=== PATIENT | female | born 1975 | race Two or more races ===

== ENCOUNTER 2020-11-27 18:03 | Emergency (ER) | payer OTHER ==
[~2020-11-27] VITALS: Ht 152.4 cm; Wt 74.6 kg
[~2020-11-27 18:03] MED LIST: LORA10TA3 PO; PREN1TAB58 PO
--- NOTE | 2020-11-27 20:06 | ED.ADGEN ---
Past Medical History Past Medical History: Depression Additional Past Medical Histor: sinus problems, allergies Past Surgical History: Other Additional Past Surgical Histo: "TUMMY TUCK" 11/10/2020 Smoking Status: Never Smoker Alcohol Use: None Drug Use: None General Adult EDM: Chief Complaint: OTHER COMPLAINTS HPI: HPI: Patient is a 45 year old female who presents emergency department with request for her RAHAT drains to be removed from her abdomen. Patient reports she went to [facility] and had a tummy tuck on November 10, 2020. She states that her surgeon told her that once the drains had less than 25 mL of fluid in them after a 24-hour. They can be taken out. Patient reports that she called her primary care doctor who refused to remove the drains and told her to go to the ER to have the drains removed. Patient denies any abdominal pain, fever, cough, nausea, vomiting, diarrhea, shortness of breath, chest pain, weakness, or fatigue. She currently denies any pain. Patient denies any erythema or drainage from her recent surgical incisions. Review of Systems: Review of Systems: Complete ROS is negative unless otherwise noted in HPI. Allergies: Allergies: Allergies Coded Allergies Type Severity Reaction Last Updated Verified No Known Drug Allergies 07/12/14 No Physical Exam: PE: See Above Constitutional: Well developed, well nourished, no acute distress, non-toxic appearance. [] HENT: Normocephalic, atraumatic, bilateral external ears normal, nose normal. [] Eyes: PERRLA, EOMI, conjunctiva normal, no discharge. [] Neck: Normal range of motion, no stridor. [] Cardiovascular:Heart rate regular rhythm Lungs & Thorax: Respirations even and unlabored, no retractions, no respiratory distress Abdomen: soft, non-tender, no palpable mass, no pulsatile mass Skin: Warm, dry, no rash; healing incision just below the patient's abdomen from hop to hip: no warmth, no surrounding erythema, no abnormal drainage or bleeding, there are 2 RAHAT drains present 1 in each groin that have < 25 ml of serous fluid in them.. [] Extremities: No cyanosis, ROM intact, no edema. [] Neurologic: Alert and oriented X 3, no focal deficits noted. [] Psychologic: Affect normal, judgement normal, mood normal. [] Current Patient Data: Vital Signs: Vital Signs Date Time Temp Pulse Resp B/P (MAP) Pulse Ox O2 Delivery O2 Flow Rate FiO2 11/27/20 19:00 97.7 85 16 112/74 (87) 98 Room Air 97.7 EKG: EKG: [] Heart Score: C/O Chest Pain: No Risk Scores: Score 0 - 3: 2.5% MACE over next 6 weeks - Discharge Home Score 4 - 6: 20.3% MACE over next 6 weeks - Admit for Clinical Observation Score 7 - 10: 72.7% MACE over next 6 weeks - Early Invasive Strategies Radiology/Procedures: Radiology/Procedures: [] Course & Med Decision Making: Course & Med Decision Making Pertinent Labs and Imaging studies reviewed. (See chart for details) 1931- I spoke with Dr. Mcdonald, the surgeon on-call about the patient. He advises to not remove the RAHAT drains. Have the patient contact the surgeon who performed the procedure and provide them with the phone number for his office. Once the surgeon has given the report to Dr. Mcdonald the patient can follow-up in his office to have the RAHAT drains removed. I informed the patient of my conversation with Dr. Mcdonald, I encouraged her to call her surgeon and provide report to Dr. Mcdonald's office about the procedure that was performed so that the RAHAT drains can be removed in his office. Patient verbalized an understanding of home care, medications, follow-up, and return to ED instructions and was in agreement with the plan of care. Dragon Disclaimer: Dragon Disclaimer: This electronic medical record was generated, in whole or in part, using a voice recognition dictation system. Departure Departure Impression: Primary Impression: Encounter for post surgical wound check Disposition: 01 HOME / SELF CARE / HOMELESS Condition: STABLE Referrals: ABELARDO MAURICIO (PCP) PAOLO MCDONALD MD Patient Instructions: Wound Check Additional Instructions: Have your surgeon in [place] call Dr. Mcdonald's office to give report about procedure that was performed. Follow-up with Dr. Mcdonald for RAHAT drain removal. Return to the ER if symptoms worsen or fever develops. BLANCA SPENCER APRN November 27, 2020 20:06
[2020-11-27 20:13] VITALS: BP 111/70
== END 2020-11-27 20:15 | disposition home or self-care (01) ==
LOC: ER 18:03
DX: Z48.89 Encounter for other specified surgical aftercare (principal)
CPT/HCPCS: 99281